=== PATIENT | female | born 1990 | race African-American/Black ===

== ENCOUNTER 2020-03-10 07:16 | Emergency (ER) | payer OTHER ==
[~2020-03-10] VITALS: Ht 172.7 cm; Wt 96.6 kg
[2020-03-10] MEDS ORDERED: METFORMIN HCL500 M3 PO (07:25)
[2020-03-10 07:54] LABS: URINE BILIRUBIN NEGATIVE (Negative); URINE BLOOD 3+ (Negative); URINE CLARITY CLEAR; URINE COLOR YELLOW; URINE GLUCOSE-RANDOM* 3+ (Negative); URINE KETONES 3+ (Negative); URINE LEUKOCYTES-REFLEX NEGATIVE (Negative); URINE NITRITE-REFLEX NEGATIVE (Negative); URINE PROTEIN (DIPSTICK) NEGATIVE (Negative); URINE SPECIFIC GRAVITY 1.015 (1.005-1.035); URINE UROBILINOGEN 0.2 E.U./dl (0.2-1.0)
[2020-03-10 07:59] LABS: ABSOLUTE NEUTROPHILS 10.1 thou/uL (1.4-8.2); BASOPHILS 0.4 % (0.0-2.0); EOSINOPHILS 0.2 % (0.0-3.0); HEMATOCRIT 44.8 % (37.0-47.0); HEMOGLOBIN 15.4 gm/dL (12.0-15.0); LYMPHOCYTES 7.6 % (24.0-44.0); MCH 30.9 pg (26.0-34.0); MCHC 34.5 g/dL (28.0-37.0); MCV 89.6 fL (80.0-100.0); MONOCYTES 2.6 % (1.0-8.0); PLATELET COUNT 272 thou/uL (150-400); POLYS 89.2 % (36.0-66.0); RDW 13.6 % (10.5-14.5); WBC 11.3 thou/uL (4.0-11.0)
[2020-03-10 08:06] LABS: CALCIUM 8.6 mg/dL (8.5-10.1); POTASSIUM 3.3 mmol/L (3.5-5.1)
[2020-03-10 08:10] LABS: BACTERIA-REFLEX None Seen /HPF (None Seen); CASTS None Seen /LPF (None Seen); CRYSTALS None Seen /LPF (None Seen); SQUAMOUS 0-3 Few /LPF (0-3); URINE RBC 0-2 Rare /HPF (0-2); URINE WBC-REFLEX 0-5 Rare /HPF (0-5)
[2020-03-10 08:12] LABS: DIRECT BILIRUBIN 0.3 mg/dL (<0.1-0.2); TOTAL BILIRUBIN 0.5 mg/dL (<0.1-1.0)
[2020-03-10 08:32] LABS: BE(vivo) -1.6 mmol/L (-2 to +3); HCO3 18.9 mmol/L (22.0-26.0); PCO2 VENOUS 23.1 mmHg (41.0-51.0); PO2 VENOUS 42.3 mmHg (35.0-45.0)
[2020-03-10] MEDS ORDERED: ZOFRAN ODT4 MG PO (09:57)
[2020-03-10] MEDS ORDERED: PRILOSEC OTC20 MG PO (09:57)
[2020-03-10 10:18] VITALS: BP 162/92
== END 2020-03-10 10:22 | disposition home or self-care (01) ==
LOC: ER 07:16
PROVIDERS: Emergency Medicine
DX: E10.65 Type 1 diabetes mellitus with hyperglycemia (principal); R11.2 Nausea with vomiting, unspecified; R19.7 Diarrhea, unspecified; F12.90 Cannabis use, unspecified, uncomplicated